=== PATIENT | male | born 1985 | race Caucasian/White ===

== ENCOUNTER 2022-10-02 10:05 | Emergency (ER) | payer OTHER ==
[2022-10-02 10:40] LABS: #Basophils 0.1 thou/uL (0.0-0.2); #Eosinphils 0.1 thou/uL (0.0-0.7); #Lymphocytes 3.6 thou/uL (1.20-3.40); #Monocytes 0.7 thou/uL (0.11-0.59); #Neutrophils 4.3 thou/uL (1.40-6.50); %Basophils 0.7 % (0.0-1.0); %Eosinophils 0.7 % (0.0-10.0); %Monocytes 8.3 % (0.0-10.0); %Neutrophils 49.3 % (42.0-75.0); Hemoglobin 15.3 g/dL (14.0-18.0); Mean Corpuscular HGB CONC 35.3 g/dL (32.0-36.0); Mean Corpuscular Hemoglobin 32.4 pg (27.0-31.0); Mean Corpuscular Volume 91.7 fl (78.0-98.0); Platelet Count 184 10x3/uL (130-400); RBC Distribution Width 11.5 % (11.5-14.5); Red Blood Cell (RBC) Count 4.74 mill/uL (4.70-6.10); White Blood Cell (WBC) Count 8.7 10x3/uL (4.8-10.8)
[2022-10-02] MEDS ORDERED: diphenhydrAMINE 50 MG/ML VIAL ONE (10:57)
[2022-10-02] MEDS ORDERED: Prochlorperazine 10 MG/2 ML VIAL ONE (10:57)
[2022-10-02] MEDS ORDERED: Acetaminophen 500 MG TAB ONE (10:57)
[2022-10-02] MEDS ORDERED: HYDROmorphone 0.5 MG/0.5 ML SYRINGE ONE (10:57)
[2022-10-02 11:03] LABS: ALT (SGPT) 65 U/L (8-55); AST (SGOT) 39 U/L (5-34); Albumin 4.3 g/dL (3.5-5.0); Alkaline Phosphatase 77 U/L (40-110); Anion Gap 18 mmol/L (10-20); BUN (Urea Nitrogen) 11 mg/dL (8.9-20.6); Bilirubin, Total 0.4 mg/dL (0.2-1.2); Calc. Creatinine Clearance 0 mL/min (70-130); Calcium 8.9 mg/dL (7.8-10.44); Carbon Dioxide 20 mmol/L (22-29); Chloride 105 mmol/L (98-107); Estimated GFR 115; Globulin 2.2 g/dL (2.4-3.5); Glucose 129 mg/dL (70-105); Potassium 3.6 mmol/L (3.5-5.1); Protein, Total 6.5 g/dL (6.0-8.3); Sodium 139 mmol/L (136-145)
[2022-10-02] MEDS ORDERED: Ketorolac Tromethamine 30 MG/ML VIAL ONE (11:27)
== END 2022-10-02 12:33 | disposition home or self-care (01) ==
LOC: ERS 10:05
DX: R51.9 Headache, unspecified (principal); R94.5 Abnormal results of liver function studies
CPT/HCPCS: 70450; 80053; 85025; 96374; 96375; J0780; J1170; J1200; J1885